=== PATIENT | male | born 1970 | race Caucasian/White ===

== ENCOUNTER 2023-07-22 13:42 | Inpatient (IN) | payer OTHER ==
[~2023-07-22 13:42] MED LIST: Iopamidol-370 76% 500 ML MDV (1 ML CHARGE) ONE
[2023-07-22 14:00] LABS: #Eosinphils 0.1 thou/uL (0.0-0.7); #Monocytes 0.6 thou/uL (0.11-0.59); #Neutrophils 4.4 thou/uL (1.40-6.50); %Basophils 0.3 % (0.0-1.0); %Eosinophils 0.8 % (0.0-10.0); %Lymphocytes 29.5 % (21.0-51.0); %Monocytes 8.7 % (0.0-10.0); %Neutrophils 60.2 % (42.0-75.0); Hematocrit 43.9 % (42.0-52.0); Mean Corpuscular HGB CONC 34.2 g/dL (32.0-36.0); Mean Corpuscular Hemoglobin 32.4 pg (27.0-31.0); Mean Corpuscular Volume 94.8 fl (78.0-98.0); Platelet Count 280 10x3/uL (130-400); RBC Distribution Width 12.5 % (11.5-14.5); Red Blood Cell (RBC) Count 4.63 mill/uL (4.70-6.10); White Blood Cell (WBC) Count 7.3 10x3/uL (4.8-10.8)
[2023-07-22 14:19] LABS: ALT (SGPT) 21 U/L (8-55); AST (SGOT) 15 U/L (5-34); Albumin 4.3 g/dL (3.5-5.0); Alkaline Phosphatase 57 U/L (40-110); Anion Gap 14 mmol/L (10-20); BUN (Urea Nitrogen) 16 mg/dL (8.4-25.7); Bilirubin, Total 0.4 mg/dL (0.2-1.2); Calc. Creatinine Clearance 0 mL/min (70-130); Calcium 9.1 mg/dL (7.8-10.44); Carbon Dioxide 24 mmol/L (22-29); Chloride 104 mmol/L (98-107); Estimated GFR 89; Globulin 2.9 g/dL (2.4-3.5); Glucose 124 mg/dL (70-105); Protein, Total 7.2 g/dL (6.0-8.3); Sodium 138 mmol/L (136-145)
[2023-07-22 14:23] LABS: Troponin I Less than 0.010 ng/mL (< 0.028)
[2023-07-22 14:27] LABS: PTT 24.8 sec (22.9-36.1); Prothrombin Time 12.8 sec (12.0-14.7)
[2023-07-22] MEDS ORDERED: Acetaminophen 325 MG TAB PO PRN (16:24)
[2023-07-22] MEDS ORDERED: Ondansetron ODT 4 MG TAB PO PRN (16:24)
[2023-07-22] MEDS ORDERED: Atorvastatin Calcium 40 MG TAB PO SCH (21:00)
[2023-07-22] MEDS ORDERED: Atorvastatin Calcium 40 MG TAB ONE (21:52)
[2023-07-23 01:56] VITALS: BMI 29.1
[2023-07-23 04:03] VITALS: TEMP 98.5
[2023-07-23 05:31] LABS: #Eosinphils 0.1 thou/uL (0.0-0.7); #Monocytes 0.6 thou/uL (0.11-0.59); #Neutrophils 4.7 thou/uL (1.40-6.50); %Basophils 0.3 % (0.0-1.0); %Eosinophils 0.7 % (0.0-10.0); %Lymphocytes 26.9 % (21.0-51.0); %Monocytes 7.8 % (0.0-10.0); %Neutrophils 63.8 % (42.0-75.0); Hematocrit 42.7 % (42.0-52.0); Hemoglobin 14.8 g/dL (14.0-18.0); Mean Corpuscular HGB CONC 34.7 g/dL (32.0-36.0); Mean Corpuscular Hemoglobin 32.8 pg (27.0-31.0); Mean Corpuscular Volume 94.7 fl (78.0-98.0); Mean Platelet Volume 9.9 fL (7.4-10.4); Platelet Count 290 10x3/uL (130-400); RBC Distribution Width 12.8 % (11.5-14.5); Red Blood Cell (RBC) Count 4.51 mill/uL (4.70-6.10); White Blood Cell (WBC) Count 7.3 10x3/uL (4.8-10.8)
[2023-07-23 06:01] LABS: Anion Gap 15 mmol/L (10-20); BUN (Urea Nitrogen) 16 mg/dL (8.4-25.7); Calc. Creatinine Clearance 111 mL/min (70-130); Calcium 9.1 mg/dL (7.8-10.44); Carbon Dioxide 23 mmol/L (22-29); Cardiac Risk 7.3 (Less than 4.5); Chloride 104 mmol/L (98-107); Cholesterol 242 mg/dl (< 200 Desired); Estimated GFR 100; Glucose 96 mg/dL (70-105); HDL Cholesterol 33 mg/dL (>60 Neg Risk); LDL Cholesterol, Calculated 148 mg/dL; Potassium 3.8 mmol/L (3.5-5.1); Sodium 138 mmol/L (136-145); Triglycerides 306 mg/dL (Less than 150)
[2023-07-23] MEDS ORDERED: Aspirin 325 mg Enteric Coated Tablet PO SCH (09:00)
[2023-07-23 09:18] VITALS: BP 134/86
== END 2023-07-23 09:08 | disposition home or self-care (01) | DRG 69 ==
LOC: ERS 13:42 → ERHOLD 15:00
PROVIDERS: ADMIT Internal Medicine; ATTEND Internal Medicine
DX: G45.9 Transient cerebral ischemic attack, unspecified (principal); I10 Essential (primary) hypertension; R73.03 Prediabetes; Z90.49 Acquired absence of other specified parts of digestive tract; Z98.890 Other specified postprocedural states
CPT/HCPCS: 36415; 70450; 70496; 70498; 70551; 71045; 80048; 80053; 80061; 84484; 85025; 85610; 85730; 93005; 94760; 96360; Q9967